=== PATIENT | male | born 1965 | race Caucasian/White ===

== ENCOUNTER 2024-08-26 11:53 | Outpatient (OUT) | payer OTHER, SELFPAY ==
--- NOTE | 2024-08-26 12:03 | XR_ITS ---
[facility] [place] [id number] Patient Name: YURIY MARTELL MRN: [id number] date: 1965 Sex: M Assigned Patient Location: RAD Current Patient Location: [facility] Accession/Order Number: [id number] Exam Date: 08/26/2024 15:29 Report Date: 08/26/2024 15:32 At the request of: MATILDA JOSEPH Procedure: XR knee LT 4V LEFT KNEE - 4 views CLINICAL HISTORY: Left knee swelling for 4 weeks. COMPARISON: None FINDINGS: No knee joint effusion. No acute bony process. Minimal degenerative change. XR/XR knee LT 4V IMPRESSION: MINIMAL DEGENERATIVE CHANGE WITHOUT ACUTE BONY PROCESS. Impression dictated by: Martell Rojas Jr., D.OVivi08/26/2024 3:32 PM Dictation Location: [place] [address] Electronically authenticated by: [id number] Y Date: 08/26/2024 15:32
== END 2024-08-26 11:54 | disposition home or self-care (01) ==
LOC: RAD 11:58
PROVIDERS: PCP Family Medicine; Visit Provider Nurse Practitioner
DX: M25.462 Effusion, left knee (principal)
CPT/HCPCS: 73564